=== PATIENT | female | born 1955 | race Caucasian/White ===

== ENCOUNTER 2022-04-04 12:59 | Outpatient (CLI) | payer MEDICARE, OTHER ==
[~2022-04-04 12:59] MED LIST: Iopamidol 300 61% 100 ML VIAL FS ONE
== END 2022-04-04 13:00 | disposition home or self-care (01) ==
LOC: CSHCT 12:59
PROVIDERS: ATTEND Specialist
DX: K11.20 Sialoadenitis, unspecified (principal); J35.1 Hypertrophy of tonsils; Z90.09 Acquired absence of other part of head and neck
CPT/HCPCS: 70491; 82565; Q9967